=== PATIENT | male | born 1955 | race African-American/Black ===

== ENCOUNTER 2016-05-29 10:00 | Emergency (ER) | payer OTHER ==
[~2016-05-29] VITALS: Ht 170.2 cm; Wt 88.5 kg
[~2016-05-29 10:00] MED LIST: ALBUTEROL0.09 MG/A1 INH; FLOVENT DI250 MCG/Ac INH; NASONEX0.05 MG/Ac NAS; NEXIUM 40MG40 MG PO; PREDNISONE 20MG20 MG PO; ZITHROMAX Z-PA250 M1 PO
--- NOTE | 2016-05-29 10:10 | ED GENERAL ADULT ---
History of Present Illness General Chief Complaint: Wheezing/Asthma Stated Complaint: ASTHMA, WHEEZING Source: patient, family Exam Limitations: no limitations Vital Signs & Intake/Output Vital Signs & Intake/Output Vital Signs Date Time Temp Pulse Resp B/P Pulse O2 O2 Flow FiO2 Ox Delivery Rate 05/29 1212 97 05/29 1040 98 05/29 1005 97.6 92 26 177/93 94 Room Air Room Air Allergies Coded Allergies: NO KNOWN ALLERGIES (10/13/12) Reconcile Medications Albuterol Sulfate (Albuterol Sulfate Hfa) 0.09 MG/Actuation PALLAVI 2 PUFF INH Q4- 6 PRN PRN SHORTNESS OF BREATH (Reported) 90 MCG PER PUFF Azithromycin (Zithromax Z-Rc) 250 MG CAP 1 DP PO AD . 2 the first day followed by 1 for days 2-5 Esomeprazole (Nexium) 40 MG CAP 1 CAP PO DAILY GI (Reported) Fluticasone Propionate (Flovent Diskus) 250 MCG/Actuation POW 1 PUFF INH BID ASTHMA (Reported) Mometasone Furoate (Nasonex) 0.05 MG/Actuation SPR 2 SPRAY RHONDA DAILY SINUSITIS Prednisone 20 MG TAB 1 TAB PO AD BRONCHITIS 3 TABS PO DAY 1-3 2 TABS PO DAY 4-6 1 TAB PO DAY 7-9 Triage Note: TRIAGE: 61 Y/O MALE PRESENTS C/O HISTORY OF ASTHMA, ASTHMA EXACERBATION, AND WHEEZING. AUDIBLE WHEEZING HEARD THROUGHOUT. PATIENT UNABLE TO SPEAK IN COMPLETE SENTENCES IN TRIAGE. SPO2 93-95% ON ROOM AIR. Triage Nurses Notes Reviewed? yes Onset: Abrupt Duration: day(s): Timing: recent history HPI: 05/29/16 10:20 AM 61-year-old male presents to the emergency department for difficulty breathing. According to the patient and his he's had a history of asthma. He presents to the emergency department with difficulty breathing for the past 48 hours. He also admits to cough productive of yellow sputum. No fever. The onset of the symptoms were abrupt, the duration was 48 hours, the severity is significant; as his symptoms required her to come to the emergency department for care. He has past medical history of asthma. No significant past surgical history. No known drug allergies. He does not smoke. He does admit to a cough associated with yellow sputum. Past History Travel History Traveled to [place] past 21 day No Medical History Any Pertinent Medical History? see below for history Neurological: NONE EENT: NONE Cardiovascular: NONE Respiratory: asthma Gastrointestinal: GERD Hepatic: NONE Renal: NONE Musculoskeletal: NONE Psychiatric: NONE Endocrine: NONE Blood Disorders: NONE Cancer(s): NONE UROLOGY PHYSICIAN/Reproductive: NONE History of MRSA: No History of VRE: No History of CDIFF: No Surgical History Surgical History: non-contributory Psychosocial History Who do you live with Spouse Services at Home None What is your primary language Italian Tobacco Use: Never used ETOH Use: occasional use Illicit Drug Use: denies illicit drug use Family History Hx Contributory? No Review of Systems Review of Systems Constitutional: Denies: fever. EENTM: Denies: visual changes. Respiratory: Reports: cough, short of breath, sputum production. Cardiovascular: Denies: chest pain. GI: Denies: abdominal pain. Genitourinary: Reports: no symptoms. Musculoskeletal: Reports: no symptoms. Skin: Denies: rash. Neurological/Psychological: Reports: no symptoms. Hematologic/Endocrine: Reports: no symptoms. Physical Exam Physical Exam General Appearance: well developed/nourished, alert, awake, anxious, moderate distress Head: atraumatic, normal appearance Eyes: Bilateral: normal appearance, PERRL, EOMI. Ears, Nose, Throat: normal pharynx, normal ENT inspection Neck: normal inspection, supple Respiratory: chest non-tender, wheezing Cardiovascular: regular rate/rhythm Peripheral Pulses: 4+ radial (R), 4+ radial (L) Gastrointestinal: soft, non-tender Back: normal range of motion Extremities: normal range of motion, no edema Neurologic/Psych: no motor/sensory deficits, awake, alert, oriented x 3 Skin: intact, normal color, warm/dry Core Measures ACS in differential dx? No CVA/TIA Diagnosis: No Severe Sepsis Present: No Septic Shock Present: No Progress Differential Diagnoses I considered the following diagnoses in my evaluation of the patient: [Asthma, bronchitis, pneumonia, pneumothorax] Plan of Care: Orders Procedure Date/time Status PEAK FLOW MEASUREMENT (GEN) 05/29 1158 Complete AEROSOL (GEN) 05/29 1158 Complete AEROSOL (GEN) 05/29 1039 Complete Initial ED EKG: none Departure Departure Disposition: HOME OR SELF CARE Condition: Stable Clinical Impression Primary Impression: Bronchitis Referrals: Dwight MCGUIRE MD (PCP/Family) Departure Forms: Customer Survey General Discharge Information Comments 05/29/16 1 PM The patient received 2 albuterol nebulizer treatments and by mouth steroids in the emergency department. On reevaluation his symptoms completely resolved. Lungs were clear. The wheezing that he had is completely gone. He is comfortable. Chest x-ray was negative for pneumonia. He will be discharged with Vibramycin, prednisone, and Nasonex. He will follow-up with his doctor on Tuesday. Critical Care Note Critical Care Note Critical Care Time: non-applicable
--- NOTE | 2016-05-29 11:22 | RADIOLOGY REPORT ---
EXAMINATION: XR PORTABLE CHEST CLINICAL INFORMATION: 61-year-old man with shortness of breath. COMPARISON: 03/17/2010 chest radiograph report TECHNIQUE: Portable AP view of the chest was obtained. FINDINGS: The lungs are well expanded and clear, without evidence of focal consolidation or pulmonary edema. Heart size is within the range of normal. There are no pleural effusions. IMPRESSION: No radiographic evidence of an acute cardiopulmonary process.
[2016-05-29] MEDS ORDERED: PREDNISONE20 M1 PO (13:10)
[2016-05-29] MEDS ORDERED: VIBRAMYCIN100 MG PO (13:10)
[2016-05-29] MEDS ORDERED: NASONEX17 GM NASB (13:10)
[2016-05-29 13:38] VITALS: BP 164/88
== END 2016-05-29 13:30 ==
LOC: ERH 10:00
DX: J40 Bronchitis, not specified as acute or chronic (principal)
CPT/HCPCS: 1263